=== PATIENT | male | born 1965 ===

== ENCOUNTER 2020-09-10 08:02 | Inpatient (IN) ==
[2020-09-10] MEDS ORDERED: Ketorolac 15 MG/ML VIAL IVP PRN ×2 (11:32→21:11)
[2020-09-10] MEDS ORDERED: Ondansetron 4 MG/2 ML VIAL IVP PRN ×2 (11:32→21:11)
[2020-09-10] MEDS ORDERED: Naloxone 0.4 MG/ML INJ IVP PRN ×2 (11:32→21:11)
[2020-09-10] MEDS ORDERED: Ringers Solution, Lactated 1,000 ML IVC SCH (11:45)
[2020-09-10] MEDS ORDERED: *HR* FentaNYL (PF) 100 MCG/2 ML VIAL IVP PRN ×2 (13:48→21:11)
[2020-09-10] MEDS ORDERED: Ondansetron 4 MG/2 ML VIAL ONE (13:50)
[2020-09-10] MEDS ORDERED: *HR* Propofol 200 MG/20 ML VIAL IVP ONE ×2 (13:50→14:33)
[2020-09-10] MEDS ORDERED: Lidocaine -MPF 2% 2 ML VIAL ONE (13:50)
[2020-09-10 17:43] LABS: Calcium 8.4 mg/dL (8.6-10.3); Potassium 4.3 mEq/L (3.5-5.1)
[2020-09-10] MEDS ORDERED: Dextrose Gel 15 GM/37.5 ML TUBE PO PRN ×4 (18:32→21:11)
[2020-09-10] MEDS ORDERED: *HR* Dextrose 50 % in Water (Vial) 50 ML VIAL IVP PRN ×2 (18:32→21:11)
[2020-09-10] MEDS ORDERED: D5% in Water 1,000 ML IVC PRN ×2 (18:32→21:11)
[2020-09-10] MEDS ORDERED: Insulin LISPRO 300 UNITS/3 ML VIAL SUBQ SCH (21:00)
[2020-09-10 21:45] LABS: Calcium 8.4 mg/dL (8.6-10.3); Potassium 4.4 mEq/L (3.5-5.1)
[2020-09-11] MEDS: Ringers Solution, Lactated 1,000 ML IVC SCH ×2 (04:51→13:23)
[2020-09-11] MEDS ORDERED: Insulin LISPRO 300 UNITS/3 ML VIAL SUBQ SCH ×3 (07:30→21:00)
[2020-09-11 08:56] LABS: Basophils % 0.5 %; Eosinophils # 0.1 K/mcL (0.0-0.6); Eosinophils % 0.7 %; Hematocrit 38.7 % (37.5-50.1); Hemoglobin 12.8 g/dL (12.9-16.9); Immature Granulocytes % 0.5 % (0-4); Lymphocytes # 2.1 K/mcL (0.6-4.6); Lymphocytes % 25.3 %; Mean Corpuscular HGB Conc 33.1 g/dL (31.6-35.5); Mean Corpuscular Hemoglobin 30.9 pg (28.0-33.3); Mean Corpuscular Volume 93.5 fL (83.0-100.0); Mean Platelet Volume 9.2 fL (9.4-12.4); Monocytes # 0.6 K/mcL (0.0-1.3); Monocytes % 6.7 %; Neutrophils # 5.6 K/mcL (1.6-8.9); Platelet Count 270 K/mcL (140-400); Red Blood Count 4.14 M/mcL (4.19-5.50); Red Cell Distribution Width 12.9 % (11.5-14.5); Segmented Neutrophils % 66.3 %; White Blood Count 8.4 K/mcL (4.3-11.1)
[2020-09-11 09:06] LABS: BUN/Creatinine Ratio 18 (6-26); Blood Urea Nitrogen 27 mg/dL (6-20); Calcium 8.6 mg/dL (8.6-10.3); Carbon Dioxide 25 mEq/L (23-29); Chloride 99 mEq/L (98-107); Glucose 414 mg/dL (70-105); Osmolality,Calculated 299 (280-300); Potassium 4.5 mEq/L (3.5-5.1); Sodium 133 mEq/L (136-145); eGFR For African Americans > 60 (> 60); eGFR For Non-African Americans 50 (> 60)
[2020-09-11] MEDS: Insulin LISPRO 300 UNITS/3 ML VIAL SUBQ SCH ×3 (12:26→21:21)
[2020-09-11] MEDS ORDERED: Acetaminophen 325 MG TABLET PO PRN (12:29)
[2020-09-11] MEDS: Insulin DETEMIR 100 UNIT/ML X5UNITS SUBQ SCH ×2 (13:20→21:24)
[2020-09-11 14:09] LABS: Estimated Average Glucose 335 mg/dl; Hemoglobin A1C 13.3 %
[2020-09-12 05:17] LABS: Basophils % 0.4 %; Eosinophils # 0.1 K/mcL (0.0-0.6); Eosinophils % 1.2 %; Hematocrit 36.5 % (37.5-50.1); Hemoglobin 12.2 g/dL (12.9-16.9); Immature Granulocytes % 0.4 % (0-4); Lymphocytes % 24.7 %; Mean Corpuscular HGB Conc 33.4 g/dL (31.6-35.5); Mean Corpuscular Hemoglobin 31.3 pg (28.0-33.3); Mean Corpuscular Volume 93.6 fL (83.0-100.0); Mean Platelet Volume 9.1 fL (9.4-12.4); Monocytes # 0.5 K/mcL (0.0-1.3); Neutrophils # 5.5 K/mcL (1.6-8.9); Platelet Count 267 K/mcL (140-400); Red Cell Distribution Width 12.6 % (11.5-14.5); Segmented Neutrophils % 67.3 %; White Blood Count 8.2 K/mcL (4.3-11.1)
[2020-09-12 05:32] LABS: BUN/Creatinine Ratio 20 (6-26); Blood Urea Nitrogen 23 mg/dL (6-20); Calcium 8.6 mg/dL (8.6-10.3); Carbon Dioxide 25 mEq/L (23-29); Chloride 100 mEq/L (98-107); Glucose 328 mg/dL (70-105); Osmolality,Calculated 294 (280-300); Sodium 134 mEq/L (136-145); eGFR For African Americans > 60 (> 60); eGFR For Non-African Americans > 60 (> 60)
[2020-09-12] MEDS: Insulin LISPRO 300 UNITS/3 ML VIAL SUBQ SCH ×4 (07:40→20:22)
[2020-09-12] MEDS: Insulin DETEMIR 100 UNIT/ML X5UNITS SUBQ SCH ×2 (07:40→20:29)
[2020-09-12] MEDS: 0.9 % Sodium Chloride 1,000 ML IVC SCH (10:23)
[2020-09-12] MEDS ORDERED: polyethylene glycoL 3350 17 GM POWD.PACK PO ONE (10:41)
[2020-09-13 00:58] LABS: Adenovirus Not Detected (Not Detect); Bordetella Pertussis Not Detected (Not Detect); Chlamydophila pneumoniae Not Detected (Not Detect); Coronavirus 229E Not Detected (Not Detect); Coronavirus HKU1 Not Detected (Not Detect); Coronavirus NL63 Not Detected (Not Detect); Coronavirus OC43 Not Detected (Not Detect); Human Metapneumovirus Not Detected (Not Detect); Human Rhinovirus/Enterovirus Not Detected (Not Detect); Influenza A Subtype 2009 H1 Not Detected (Not Detect); Influenza B Not Detected (Not Detect); Mycoplasma pneumoniae Not Detected (Not Detect); Parainfluenza Virus 1 Not Detected (Not Detect); Parainfluenza Virus 2 Not Detected (Not Detect); Parainfluenza Virus 3 Not Detected (Not Detect); Parainfluenza Virus 4 Not Detected (Not Detect); Respiratory Syncytial Virus Not Detected (Not Detect); SARS-CoV-2 Not Detected (Not Detect)
[2020-09-13 05:17] LABS: Basophils % 0.4 %; Eosinophils # 0.1 K/mcL (0.0-0.6); Eosinophils % 1.4 %; Hematocrit 36.2 % (37.5-50.1); Hemoglobin 11.9 g/dL (12.9-16.9); Immature Granulocytes % 0.5 % (0-4); Lymphocytes # 2.4 K/mcL (0.6-4.6); Lymphocytes % 30.4 %; Mean Corpuscular HGB Conc 32.9 g/dL (31.6-35.5); Mean Corpuscular Hemoglobin 30.6 pg (28.0-33.3); Mean Corpuscular Volume 93.1 fL (83.0-100.0); Mean Platelet Volume 9.2 fL (9.4-12.4); Monocytes # 0.6 K/mcL (0.0-1.3); Monocytes % 7.1 %; Neutrophils # 4.8 K/mcL (1.6-8.9); Platelet Count 257 K/mcL (140-400); Red Blood Count 3.89 M/mcL (4.19-5.50); Red Cell Distribution Width 12.7 % (11.5-14.5); Segmented Neutrophils % 60.2 %
[2020-09-13 05:37] LABS: BUN/Creatinine Ratio 21 (6-26); Blood Urea Nitrogen 23 mg/dL (6-20); Calcium 8.7 mg/dL (8.6-10.3); Carbon Dioxide 25 mEq/L (23-29); Chloride 101 mEq/L (98-107); Glucose 327 mg/dL (70-105); Osmolality,Calculated 296 (280-300); Sodium 135 mEq/L (136-145); eGFR For African Americans > 60 (> 60); eGFR For Non-African Americans > 60 (> 60)
[2020-09-13] MEDS: 0.9 % Sodium Chloride 1,000 ML IVC SCH ×2 (08:07→12:40)
[2020-09-13] MEDS: Insulin LISPRO 300 UNITS/3 ML VIAL SUBQ SCH ×3 (08:28→16:59)
[2020-09-13] MEDS: Insulin DETEMIR 100 UNIT/ML X5UNITS SUBQ SCH ×2 (08:28→22:27)
[2020-09-13] MEDS ORDERED: *HR* SitaGLIPtin 25 MG TABLET PO SCH (11:45)
[2020-09-13] MEDS ORDERED: *HR* Propofol 200 MG/20 ML VIAL IVP ONE (15:36)
[2020-09-13] MEDS ORDERED: Lidocaine -MPF 2% 2 ML VIAL ONE (15:36)
[2020-09-13] MEDS ORDERED: *HR* Midazolam HCl 2 MG/2 ML VIAL ONE (15:36)
[2020-09-13] MEDS ORDERED: *HR* FentaNYL (PF) 100 MCG/2 ML VIAL ONE ×2 (15:36→16:46)
[2020-09-13] MEDS ORDERED: Ondansetron 4 MG/2 ML VIAL ONE (15:36)
[2020-09-13] MEDS ORDERED: *HR* OxyCODONE Immed Rel 5 MG TABLET PO PRN (15:47)
[2020-09-13] MEDS ORDERED: *HR* HYDROmorphone PF 0.5 MG/0.5 ML SYRINGE IVP PRN (15:47)
[2020-09-13] MEDS ORDERED: cefTRIAXone 1,000 MG in 0.9 % Sodium Chloride Mini Bag 100 ML IVPB ONE (16:00)
[2020-09-13] MEDS ORDERED: Lidocaine HCL 4 ML Topical Solution (Laryng-O-Jet Kit Sterile Pak) TP ONE (16:17)
[2020-09-13] MEDS ORDERED: *HR* Metformin 500 MG TABLET PO SCH (17:00)
[2020-09-13] MEDS ORDERED: Dextrose Gel 15 GM/37.5 ML TUBE PO PRN ×2 (18:28)
[2020-09-13] MEDS ORDERED: Acetaminophen 325 MG TABLET PO PRN (18:28)
[2020-09-13] MEDS ORDERED: Naloxone 0.4 MG/ML INJ IVP PRN (18:28)
[2020-09-13] MEDS ORDERED: *HR* Dextrose 50 % in Water (Vial) 50 ML VIAL IVP PRN (18:28)
[2020-09-13] MEDS ORDERED: Ondansetron 4 MG/2 ML VIAL IVP PRN (18:28)
[2020-09-13] MEDS ORDERED: Insulin DETEMIR 100 UNIT/ML X5UNITS SUBQ SCH (21:00)
[2020-09-13] MEDS ORDERED: Insulin LISPRO 300 UNITS/3 ML VIAL SUBQ SCH (21:00)
[2020-09-14 05:30] LABS: Basophils % 0.3 %; Eosinophils % 0.1 %; Hematocrit 39.2 % (37.5-50.1); Hemoglobin 12.6 g/dL (12.9-16.9); Immature Granulocytes % 0.7 % (0-4); Lymphocytes # 1.7 K/mcL (0.6-4.6); Lymphocytes % 12.8 %; Mean Corpuscular HGB Conc 32.1 g/dL (31.6-35.5); Mean Corpuscular Hemoglobin 30.3 pg (28.0-33.3); Mean Corpuscular Volume 94.2 fL (83.0-100.0); Mean Platelet Volume 9.2 fL (9.4-12.4); Monocytes % 4.8 %; Neutrophils # 10.9 K/mcL (1.6-8.9); Platelet Count 290 K/mcL (140-400); Red Blood Count 4.16 M/mcL (4.19-5.50); Red Cell Distribution Width 12.8 % (11.5-14.5); Segmented Neutrophils % 81.3 %
[2020-09-14 05:33] LABS: Monocytes # 0.6 K/mcL (0.0-1.3); White Blood Count 13.4 K/mcL (4.3-11.1)
[2020-09-14 05:51] LABS: BUN/Creatinine Ratio 17 (6-26); Blood Urea Nitrogen 21 mg/dL (6-20); Calcium 8.8 mg/dL (8.6-10.3); Carbon Dioxide 27 mEq/L (23-29); Chloride 97 mEq/L (98-107); Glucose 350 mg/dL (70-105); Osmolality,Calculated 293 (280-300); Potassium 4.6 mEq/L (3.5-5.1); Sodium 133 mEq/L (136-145); eGFR For African Americans > 60 (> 60); eGFR For Non-African Americans > 60 (> 60)
[2020-09-14] MEDS: 0.9 % Sodium Chloride 1,000 ML IVC SCH ×2 (07:07→08:32)
[2020-09-14] MEDS ORDERED: Insulin LISPRO 300 UNITS/3 ML VIAL SUBQ SCH (07:30)
[2020-09-14 07:44] VITALS: BP 131/70
[2020-09-14] MEDS ORDERED: *HR* Metformin 500 MG TABLET PO SCH (08:00)
[2020-09-14] MEDS ORDERED: *HR* SitaGLIPtin 25 MG TABLET PO SCH (09:00)
[2020-09-14] MEDS ORDERED: lisinopriL 20 MG TABLET PO SCH (09:00)
[2020-09-14] MEDS: Insulin DETEMIR 100 UNIT/ML X5UNITS SUBQ SCH (09:06)
== END 2020-09-14 10:57 | disposition home or self-care (01) | DRG 660 ==
LOC: 3ANU → SUATTDRO 11:02
PROVIDERS: ADMIT Internal Medicine; ATTEND Internal Medicine